=== PATIENT | female | born 1970 | race Asian ===

== ENCOUNTER 2024-06-07 11:56 | Outpatient (CLI) | payer OTHER, SELFPAY ==
--- NOTE | ~2024-06-07 | XR_ITS ---
AP and lateral views of the left hip Clinical history: Pain Findings: No acute fracture or dislocation is seen. Osseous alignment is anatomic. Left hip joint is intact. Soft tissues are unremarkable. Impression: No significant abnormality is seen. Reviewed, dictated and finalized at location . Impression: No significant abnormality is seen.
--- NOTE | ~2024-06-07 | XR_ITS ---
Cervical Spine: AP, lateral, open-mouth views Clinical History: Pain Findings: There is straightening of the normal cervical lordosis. There is advanced degenerative disc narrowing at C5-C6. There is mild degenerative change at C3-C4 and C4-C5. There is moderate facet ar thropathy.. Pre-vertebral soft tissues are unremarkable. Impression: Moderate degenerative spondylosis overall, as detailed above. Reviewed, dictated and finalized at location . Impression: Moderate degenerative spondylosis overall, as detailed above.
--- NOTE | ~2024-06-07 | XR_ITS ---
Left Shoulder Technique: AP and scapular Y and axillary views were obtained. Clinical History: Pain Findings: No fracture or dislocation is seen. Osseous alignment is anatomic. The glenohumeral and acr omioclavicular joint spaces are preserved. Soft tissues are unremarkable. Impression: Unremarkable left shoulder radiographs. Reviewed, dictated and finalized at [facility]. Impression: Unremarkable left shoulder radiographs.
--- OUTSIDE RECORDS SUMMARY | 2024-06-07 13:14 | XMS_ITS | Clinical Summary ---
[facility] Organization [facility] Address [address] [place] [phone] Phone Care Team Providers Care Surgeon/President Name Role Phone Unavailable Primary Care Provider Unavailabl e Allergies No known active allergies Medications No known medications Active Problems Problem Noted Date Diagnosed Date Hypercholesterolemia 05/23/2022 Hypertriglyceridemia 05/23/2022 Dizziness 05/22/2022 Chest pain 05/22/2022 Rapid heart rate 05/22/2022 Family History Medical History Relation Name Comments Thyroid Disease Brother Cancer Father throat Other Father hypoglycemia Thyroid Disease Maternal Grandmother Breast Cancer Mother Diabetes Mother Hypertension Mother Thyroid Disease Sister Relation Name Status Comments Brother Father Maternal Grandmother Mother Alive Sister Social History Tobacco Use Types Packs/Day Years Used Date Smoking Tobacco: Former Cigarettes Q uit: 1989 Smokeless Tobacco: Never Tobacco Cessation:Counseling Given: Not Answered Alcohol Use Standard Drinks/Week Comments Yes 0 (1 standard drink = 0.6 oz pur e alcohol) Wine rare Feeling Safe Answer Date Recorded Are you in a relationship wi th someone who hurts you emotionally and/or physically? 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 Gender Identity Not on file Sexual Orientation Not on file Last Filed Vital Signs Vital Sign Reading Time Taken Comments Blood Pressure 145/93 05/23/2022 11:18 AM CDT Pulse 86 05/23/2022 11:18 AM CDT Temperature 36.6 C (97.9 F) 05/23/2022 11:18 AM CDT Respiratory Rate 16 05/23/2022 11:18 AM CDT Oxygen Saturation 95% 05/23/2022 11:18 AM CDT Inhaled Oxygen Concentration - - Weight 102.1 kg (225 lb) 05/22/2022 7:32 PM CDT Height 165.1 cm (5' 5 ) 05/22/2022 7:32 PM CDT Body Mass Index 37.44 05/22/2022 7:32 PM CDT Plan of Treatment Health Maintenance Due Date Last Done Comments DTAP/TDAP/TD VACCINES (1 - Tdap) 1990 HEPATITIS B VACCINES (1 of 3 - 19+ 3-dose series) 1990 HPV/Cotest (21-29) 01/23/1992 PAP SMEAR 01/23/1992 CERVICAL CANCER SCREENING 2001 HPV/Cotest (30-65) 2001 PAP SMEAR 2001 COLORECTAL SCREENING 01/23/2016 Colorectal Cancer Screening 01/23/2016 FIT-DNA Q 3 years 01/23/2016 FIT/FOBT Q 1 year 01/23/2016 Flex Sig/CT Colonography Q 5 years 01/23/2016 ZOSTER VACCINE (1 of 2) 2021 BREAST CANCER SCREENING 11/07/2021 11/08/19 21, 11/07/2020 INFLUENZA VACCINE (#1) 2023 PNEUMOCOCCAL VACCINE 0-49 YEARS Aged Out No longer eligible b ased on patient's age to complete this topic Insurance [facility] [employer] [id number] Advance Directives For more information, please contact: [phone] * Full Code (Latest Code Status on File) Date Activated Date Inactivated Comments 05/22/2022 8:48 PM 05/23/2022 6:38 PM
--- OUTSIDE RECORDS SUMMARY | 2024-06-07 13:14 | XMS_ITS | Encounter Summary ---
Author Organization [facility] Address [address] [place] [address] Care Team Providers Care Social Media Intern Name Role Phone Unavailable Primary Care Provider Unavailabl e Encounter Details Date Type Department Care Team (Late st Contact Info) Description 06/25/2008 Outpatient Historical [facility] Kody Morales MD [address] [place] [address] Normal Delivery Social History Tobacco Use Types Packs/Day Years Used Date Smoking Tobacco: Never Assessed Comments Unknown Sex and Gender Information Value Date Recorded Sex Assigned at Not on file Legal Sex Female 5:44 AM MANAGER QUALITY COMPLIANCE Gender Identity Not on file Sexual Orientation Not on file documented as of this encounter Plan of Treatment Not on file documented as of this encounter Visit Diagnoses Diagnosis Normal delivery documented in this encounter
--- OUTSIDE RECORDS SUMMARY | 2024-06-07 13:14 | XMS_ITS | Clinical Summary ---
Author Organization [facility] Address [address] [place] [address] Care Team Providers Care Interlibrary Loan Specialist Name Role Phone Unavailable Primary Care Provider Unavailabl e Source Comments [facility],non-owned Affiliates and Associated Physician Practices is amultiple site organization consisting of ambulatory clinics and hospital sitesin [place], [place], [place] and [place]. This disclosure is being madepursuant to the Care Everywhere program and may not contain all information available regarding this patient. Last updated 17.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 Gender Identity Not on file Sexual Orientation Not on file Plan of Treatment Health Maintenance Due Date Last Done Comments COLOGUARD (AGES 45-75) - COL ON CA SCREENING 1971 COLON MONITORING 1971 COLONOSCOPY - COLON CA SCREENING 1971 CT COLONOGRAPHY - COLON CA SCREENING 1971 Colorectal Cancer Screening 1971 FIT - COLON CA SCREENING 1971 FLEX SIG - COLON CA SCREENING 1971 LIPID TESTING 1971 MAMMOGRAM 1971 HIV SCREENING 1986 HEPATITIS C SCREENING 01/17/1989 DTAP/TDAP/TD VACCINES (1 - Tdap) 1990 HEPATITIS B VACCINE (1 of 3 - 19+ 3-dose series) 1990 PNEUMOCOCCAL VACCINE 50+ (1 of 1 - PCV) 2021 ZOSTER VACCINE (1 of 2) 2021 COVID-19 VACCINE (1 - 2023-2 5 season) 2023 DEPRESSION SCREENING 02/23/2024 INFLUENZA VACCINE (Season Ended) 2024 HIB VACCINE Aged Out No longer eligi ble based on patient's age to complete this topic HPV VACCINE Aged Out No longer eligi ble based on patient's age to complete this topic MENINGOCOCCAL (Group B) VACC INE SHARED DECISION-MAKING Aged Out No longer eligibl e based on patient's age to complete this topic MENINGOCOCCAL GROUPS A/C/Y/W VACCINE Aged Out No longer eligible b ased on patient's age to complete this topic
--- OUTSIDE RECORDS SUMMARY | 2024-06-07 13:15 | XMS_ITS | Clinical Summary ---
Author Organization [facility] Address [address] [place] [address] Care Team Providers Care Rn Diabetes Name Role Phone Berny Brown MD Primary Care Provider +1- [phone] Allergies Active Allergy Reactions Criticality Noted Date Comments Adhesive Rash Medium 10/24/2020 Medications No known medications Active Problems No known active problems Surgical History Surgery Date Site/Laterality Comments DILATION AND CURETTAGE, DIAGNOSTIC / THERAPEUTIC Family History Medical History Relation Name Comments Throat cancer Father Breast cancer Mother >50 Colon cancer Neg Hx Endometrial cancer Neg Hx Ovarian cancer Neg Hx Pancreatic cancer Neg Hx Relation Name Status Comments Father Mother Social History Tobacco Use Types Packs/Day Years Used Date Smoking Tobacco: Never Personal Safety Answer Date Recorded Getting School Help Needed Not on file 02/22 Comments No Sex and Gender Information Value Date Recorded Sex Assigned at Not on file Legal Sex Female 4:08 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 Currently sexually active No history of STIs Last Filed Vital Signs Vital Sign Reading Time Taken Comments Blood Pressure 128/78 11/25/2022 9:57 AM CDT Pulse 70 11/25/2022 9:57 AM CDT Temperature - - Respiratory Rate - - Oxygen Saturation 99% 11/25/2022 9:57 AM CDT Inhaled Oxygen Concentration - - Weight 101.6 kg (224 lb) 11/25/2022 9:57 AM CDT Height 165.1 cm (5' 5 ) 11/25/2022 9:57 AM CDT Body Mass Index 37.28 11/25/2022 9:57 AM CDT Plan of Treatment Health Maintenance Due Date Last Done Comments Colon Cancer Screening-Colonoscopy 1971 Depression Screening 1971 Hepatitis C Screening 1971 DTaP/Tdap/Td Vaccine (1 - Tdap) 1982 Hepatitis B Screening 1989 Zoster Vaccine (1 of 2) 2021 Cervical Cancer Screening 10/24/2021 10/24/2020 Regular Well Visit/Exam 18-64 10/24/2021 10/24/2020 Breast Cancer Screening-Mammogram 11/07/2021 021 Influenza Vaccine (#1) 2023 Pneumococcal vaccine <65 Aged Out No longer eligible based on patient's age to complete this topic Procedures Procedure Name Priority Date/Time Associated Diagnosis Comments SCREENING MAMMOGRAM BILATERAL W LELE Schedule Routine, Read Routine (OP Routine) 11/07/2020 9:12 AM CDT Encounter for screening mammogram for malignant neoplasm of breast PAP AND HIGH RISK HPV, REFLEX TO GENOTYPING Routine 10/24/2020 2:14 PM CDT Cervical cancer screening from Last 3 Months or Most Recently Relevant to Health Maintenance Results * Screening Mammogram Bilateral W Lele (11/07/2020 9:12 AM CDT) Anatomical Region Laterality Modality Breast Bilateral Mammography Narrative 11/07/2020 2:35 PM CDT Screening Mammogram Bilateral W Lele: 11/07/20 Clinical: Encounter for screening mammogram for malignant neoplasm of breast. Prior Study Comparisons: None available at the time of interpretation. Findings: Bilateral No significant masses, malignant type calcifications, skin thickening, nipple retraction, or significant lymphadenopathy is noted in either breast. The CAD review showed no significant findings. The breasts have scattered areas of fibroglandular density. The patient will be notified of results by letter. Impression: BI-RADS ATLAS category (overall): 1 Negative There is no mammographic evidence of malignancy. Routine Screening Mammogram in 1 Yr is recommended for bilateral Overall Assessment: 1 - Negative Shauna Mancia MD IMG MAMMO PROCEDURES F inal Result * Pap and High Risk HPV, reflex to Genotyping (10/24/2020 2:14 PM CDT) Swab (Pap test) 10/24/2020 2 :14 PM CDT 10/28/2020 10:55 AM CDT Narrative PATHOLOGY [facility] - 11/05/2020 7:31 PM CDT EPIC results best viewed via link to PDF [address] [address] Tele: Ewa Addison MD - Body Sander CYTOLOGY REPORT Note to Patients: This report may contain a detailed description of human tissue sent by a health care provider to the laboratory for pathologic evaluation. The content of this report is essential for diagnosis and may provide important critical findings. This information may be unfamiliar to patients to review without a medical professional present. It is advised that the patient review this report in the presence of a health care provider who can answer questions and explain the details. Patient Name: GASTON SELBY Address: [address] [place] [address] Gender: F : 1970 (Age: 50) Service: Location: N : [id number] [facility] #: [id number] Patient Type: [facility] SPECIMEN Taken: 10/24/2020 Reported: 11/05/2020 Physician(s): Shauna Mancia MD FINAL DIAGNOSIS: Specimen Type: - ThinPrep Pap and HPV w/ reflex Genotyping Statement of Specimen Adequacy: Source: Cervical/Endocervical - Satisfactory for interpretation - Endocervical /Transformation Zone component present - Case screened using computer assisted imaging technology General Categorization: - Negative for intraepithelial lesion or malignancy Interpretation: - Shift in hema suggestive of Bacterial Vaginosis - Acute Inflammation jx/11/05/2020 19:31 KENNETH Benitez(ASCP), [facility] Report Reviewed and Electronically Signed By KENNETH Benitez(ASCP), [facility] Clerical Data Follow A; G0145 DIAGNOSIS COMMENT: Ancillary Testing: HPV High Risk Group (16, 18, 31, 33, 35, 39, 45, 51, 52, 56, 58, 59, 66 and 68) - Not Detected Reference Range: Not Detected This test was performed using the ENOC 4800 REPORT IMAGES AND/OR SCANNED DOCUMENTS ONLY VIEWABLE IN PDF FORMAT The Pap test is a screening test used to aid in the detection of cervical cancer and its precursors. It should not be the sole means by which malignant and premalignant lesions are diagnosed. Both false negative and false positive results may occur. It also has poor sensitivity for the detection of endometrial lesions and should not be used to evaluate suspected endometrial abnormalities. For these reasons it is most important to obtain Pap tests at regular intervals, as recommended by your physician or nurse practitioner. Shauna Mancia MD LAB CYTOLOGY ORDERABLE S Final Result PATHOLOGY [facility] Laboratory Receiving [address] [place], [place] [id number] from Last 3 Months or Most Recently Relevant to Health Maintenance Insurance [facility] CHOICE PLUS [facility] Care Teams Rn Diabetes Relationship Specialty Start Date End Date Berny Brown MD [facility] [place], [place] [id number] PCP - General Family Medicine 10/22/20
--- OUTSIDE RECORDS SUMMARY | 2024-06-07 13:15 | XMS_ITS | Referral Summary ---
Author Organization [facility] Address [address] [place] [address] Care Team Providers Care Java Technical Architect Name Role Phone Berny Brown MD Primary Care Provider +1- [phone] Allergies Active Allergy Reactions Criticality Noted Date Comments Adhesive Rash Medium 10/24/2020 Medications No known medications Active Problems No known active problems Social History Tobacco Use Types Packs/Day Years Used Date Smoking Tobacco: Never Personal Safety Answer Date Recorded Getting School Help Needed Not on file 02/22 Comments No Sex and Gender Information Value Date Recorded Sex Assigned at Not on file Legal 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 Patient Name: GASTON SELBY. Address: [address] [place] [address] Gender: F : 1970 (Age: 50) Service: Location: Hospital #: [id number] [place] [facility] [place] Taken: 10/24/2020 Reported: 11/05/2020 Physician(s): Shauna [...] suggestive of Bacterial Vaginosis - Acute Inflammation j/11/05/2020 19:31 KENNETH Benitez(ASCP), [facility] Report Reviewed and Electronically Signed By KENNETH Benitez(ASCP), [facility] Clerical Data Follow A; G0145 DIAGNOSIS COMMENT: [...] recommended by your physician or nurse practitioner. us Shauna Mancia MD LAB CYTOLOGY ORDERABLE S Final Result PATHOLOGY [facility] Laboratory Receiving [address] [place] [address] from Last 3 Months or Most Recently Relevant to Health Maintenance Insurance [facility] CHOICE PLUS [facility] Care Teams Java Technical Architect Relationship Specialty Start Date End Date Berny Brown MD [address] [place] [address] [place] [address] PCP - General Family Medicine 10/22/20
--- OUTSIDE RECORDS SUMMARY | 2024-06-07 13:15 | XMS_ITS ---
ent on a case by case basis . Clini aidee inter preta tion for other races and ages must be made by the clini abrahan . Futhe rmore , any of th e limit ation s with the use of serum creat inine relat ed to nutri alfred l statu s o r medic ation usage hasn' t accou nted for the MDRD Study equat ion. For perso ns < 18 yrs of age, a pedia tric GFR calcu lator can be locat ed on the [facility] websi te: https ://ww w.kid nabil.o rg/pr ofess ional s/kdo qi/gf r_cal culat or Not Available [facility] (Lab) [address] [place], [address], 11/01/2020 14:25:13 11/02/19 21 11/01/2020 COMPR EHENS REED METAB OLIC PANEL alkaline phosphatase 55 U/L 38-126 Not Available [facility] (Lab) [address] [place], [address], 11/01/2020 14:25:13 11/02/19 21 11/01/2020 COMPR EHENS REED METAB OLIC PANEL alanine aminotransfe rase 13 U/L 0-35 Not Available [facility] (Lab) [address] [place], [address], 11/01/2020 14:25:13 11/02/19 21 11/01/2020 COMPR EHENS REED METAB OLIC PANEL aspartate aminotransfe rase 28 U/L 15-37 Not Available [facility] (Lab) [address] [place], [address], 11/01/2020 14:25:13 11/02/19 21 11/01/2020 COMPR EHENS REED METAB OLIC PANEL bilirubin, total 0.50 mg/dL 0.20-1 .30 Not Available [facility] (Lab) [address] [place], [address], 11/01/2020 14:25:13 11/02/19 21 11/01/2020 COMPR EHENS REED METAB OLIC PANEL calcium 9.5 mg/dL 8.4-10 .2 Not Available [facility] (Lab) [address] [place], [address], 11/01/2020 14:25:13 11/02/19 21 11/01/2020 COMPR EHENS REED METAB OLIC PANEL total protein 7.5 g/dL 6.3-8. 2 Not Available [facility] (Lab) [address] [place], [address], 11/01/2020 14:25:13 11/02/19 21 11/01/2020 COMPR EHENS REED METAB OLIC PANEL albumin 4.3 g/dL 3.4-5. 0 Not Available [facility] (Lab) [address] [place], [address], 11/01/2020 14:25:13 11/02/19 21 11/01/2020 COMPR EHENS REED METAB OLIC PANEL globulin 3.2 g/dL 2.6-4. 2 Not Available [facility] (Lab) [address] [place], [address], 11/01/2020 14:25:13 11/02/19 21 11/01/2020 COMPR EHENS REED METAB OLIC PANEL A/G ratio 1.3 ratio 1.0-2. 0 Not Available [facility] (Lab) [address] [place], [address], 11/01/2020 14:25:13 11/02/19 21 11/01/2020 LIPID PANEL cholesterol 210 mg/dL 140-19 9 high NIH PEGGY NSUS RECOM MENDA TION FOR MONIKA STERO L: ADULT CHILD LOW RISK: <200 <170 BORDE RLINE : <200- 239 ----- HIGH RISK: >240 >200 Not Available [facility] (Lab) [address] [place], [address], 11/01/2020 14:25:06 11/02/19 21 11/01/2020 LIPID PANEL triglyceride s 123 mg/dL 0-150 NIH PEGGY NSUS REPOR T RECOM MENDA TION FOR TRIGL YCERI FERNANDA: ADULT CHILD LOW RISK: <150 ----- BODER LINE: 150-1 99 ----- HIGH RISK: >200 ----- Not Available [facility] (Lab) [address] [place], [address], 11/01/2020 14:25:06 11/02/19 21 11/01/2020 LIPID PANEL HDL cholesterol 49 mg/dL 40- Not Available [facility] (Lab) [address] [place], [address], 11/01/2020 14:25:06 11/02/19 21 11/01/2020 LIPID PANEL LDL cholesterol, calculated 136 mg/dL 0-130 high NIH PEGGY NSUS REPOR T RECOM MENDA TIONS FOR LDL: ADULT CHILD LOW RISK <130 <110 (OPTI MAL LDL) <100 ----- BORDE RLINE : 130-1 59 ----- HIGH RISK: >160 >130 A TRIGL YCERI DE RESUL T >400 INVAL IDATE S THE CALCU LATIO N FOR LDL FRACT IONAT ION - THE LDL RESUL T WILL NOT BE REPOR ANTONIO. Not Available [facility] (Lab) [address] [place], [address], 11/01/2020 14:25:06 11/08/19 21 11/07/2020 imagi ng/di agnos tic resul t No observ ation record ed. [id number] [facility] Orders Processing [address], [place], [address], 04/22/2022 22:07:39 Result Notes None recorded. Problems Name Problem SNOMED Code Status Onset Date Resolution Date Notes Provider Name and Address Organization Details Recorded Time Irregular heart beat 438567432 Active 2022 Berny Brown MD [address], [place], [address], [facility] [employer] [facility] [employer] [facility] 3 11:39:41 Menopause Active 2022 Berny Brown MD [address], [place], [address], [facility] [employer] [facility] [employer] [facility] 3 11:41:53 Hyperlipidemia 88370575 Active 2022 Berny Brown MD [address], [place], [address], [facility] [employer] [facility] [employer] [facility] 3 11:42:42 Notes:enlarged thyroid Problem Notes None recorded. Procedures Surgical History None recorded. Imaging Results Imaging Date Name Status LastModified by Organiz ation Details LastModified Time 11/07/2020 imaging/wilber gnostic result completed [id number] [facility] Orders [facility] [address], [place], [address], 04/22/2022 22:07:39 Procedure Notes None recorded. Medical Equipment None Reported. Medications Name Sig Start Date Stop Date Status Note LastModified by Organization Details LastModified Time amoxicillin 500 mg capsule TK1 CAPSULE BY MOUTH THREE TIMES DAILY UNTIL ALL TAKEN active Not Available Not Available No t Available atorvastatin 10 mg tablet Take 1 tablet every day by oral route. 2022 active Not Available Not Available Not Avai lable hydrocodone 5 mg-acetaminoph en 325 mg tablet TAKE 1 TO 2 TABLETS BY MOUTH EVERY 6 HOURS active Not Available Not Available No t Available Vitals Date Recorded Body mass index (BMI) Body height Oxygen saturation Oxygen saturation in Arterial blood by Pulse oximetry Heart rate Body temperature Body weight Systolic blood pressure Diastolic blood pressure Provider Name and Address Organization Details Last Updated DateTime 1 34.7 kg/m2 166.37 cm 98 % 98 % 62 /min 96.7 [degF] 81918.5 8 g 124 mm[Hg] 76 mm[Hg] Not Available [employer] 3 22:06:22 Date Recorded Body weight Body mass index (BMI) Body height Body temperature Heart rate Oxygen saturation Oxygen saturation in Arterial blood by Pulse oximetry Systolic blood pressure Diastolic blood pressure Provider Name and Address Organization Details Last Updated DateTime 3 813484. 1 g 36.5 kg/m2 166.37 cm 97.9 [degF] 85 /min 96 % 96 % 120 mm[Hg] 82 mm[Hg] TRES [place] [facility] [place] [employer] [facility] 3 11:30:15 Social History None recorded. Functional Status None recorded. Mental Status None recorded. Family History Nothing Reported. Medical History No medical history recorded. Gynecological HistoryNo gynecological history recorded. Obstetrics History GPAL:G 0 P 0 0 0 0 Past Encounters Encounter ID Performer Location Encounter Start Date Encounter Closed Date Diagnosis/Indication Diagnosis SNOMED-CT Code Diagnosis ICD10 Code Diagnosis Note [id number] [address] [place] [address] 11/01/2020 00:00:00 11/01/2020 10:50:44 [id number] Berny Brown MD [address] [place] [address] 09/09/2022 11:17:10 09/09/2022 11:49:23 Irregular heart beat 668595878 R00.8 Watch caffeine Menopause 079801944 N95. 1 SxRx May need meds for this. Hyperlipidemia 15528611 E78.5 Health Concerns Section Related Observation LastModified by Organization Detai ls LastModified Time None Recorded Concern Status LastModified by Organization Details LastModified Time None Recorded Advance Directives Directive None Recorded Payers Encounter Date Sequence Insurance Name Policy Number Policy Walker Covered Member ID Walker Member ID Guarantor Name 09/09/2022 1 [facility] Gaston Hayden [id number] Gaston Hayden Notes Date Note Type Note Provider Name and Address Organization Details Recorded Time 09/09/2022 text/html Here today for a follow up. Has had fluctuating HR. Went to ER and stayed over night. Was told has an arrythmia. Nothing to be concerned with. This was 3 months ago. [place] light headed and no sob or cp. Has heartburn. Has HR ranging between 44-184. Sometime will be 132. There is Fmhx of heart disease. Has not seen a crdiologist. Pt is going through menopause no menses x 1 year. Berny Brown MD [address] [address], [place], [address], [place] [employer] 09/10/2022 06:23:17 OBGyn Episode No OBEpisode recorded.
== END 2024-06-07 11:57 | disposition home or self-care (01) ==
PROVIDERS: PCP Nurse Practitioner Family; Visit Provider Nurse Practitioner Family
DX: M47.812 Spondylosis without myelopathy or radiculopathy, cervical region (principal); R20.2 Paresthesia of skin; R20.0 Anesthesia of skin; M25.512 Pain in left shoulder; M25.552 Pain in left hip
CPT/HCPCS: 72040; 73030; 73502

== ENCOUNTER 2024-11-06 15:20 | Outpatient (CLI) | payer OTHER, SELFPAY ==
--- NOTE | ~2024-11-06 | MM_ITS ---
EXAMINATION: MM screening izaiah BI w bri HISTORY: Screening TECHNIQUE: Craniocaudal and mediolateral oblique 3-D tomosynthesis images were obtained and synthetic 2-D images were generated. CAD analysis was submitted and interpreted. COMPARISON: No prior mammogram is available for comparison at this institution. BREAST PARENCHYMAL COMPOSITION: Not Dense: The breasts are almost entirely fatty. FINDINGS: There is no evidence of suspicious mass, calcification, or architectural distortion to suggest malignancy in either breast. [There has been no significant interval change. IMPRESSION: 1. No mammographic evidence of malignancy. Recommend routine screening mammography in one year. BI-RADS Category 1: Negative Reviewed, dictated, and finalized at Location A. Reviewed, dictated and finalized at location Q. IMPRESSION: 1. No mammographic evidence of malignancy. Recommend routine screening mammogra phy in one year. BI-RADS Category 1: Negative
--- OUTSIDE RECORDS SUMMARY | 2024-11-06 18:11 | XMS_ITS | Clinical Summary ---
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 Gender Identity Not on file Sexual Orientation [...] 7:32 PM CDT Height 165.1 cm (5' 5) 05/22/2022 7:32 PM CDT Body Mass Index 37.44 05/22/2022 7:32 PM CDT Plan of Treatment Health Maintenance Due Date Last Done Comments DTAP/TDAP/TD VACCINES (1 - Tdap) 1990 HEPATITIS B VACCINES (1 of 3 - 19+ 3-dose series) 1990 HPV/Cotest (21-29) 01/23/1992 CERVICAL CANCER SCREENING 2001 HPV/Cotest (30-65) 2001 PAP SMEAR 2001 COLORECTAL SCREENING 01/23/2016 Colorectal Cancer Screening 01/23/2016 FIT-DNA Q 3 years 01/23/2016 FIT/FOBT Q 1 year 01/23/2016 Flex Sig/CT Colonography Q 5 years 01/23/2016 ZOSTER VACCINE (1 of 2) 2021 BREAST CANCER SCREENING 11/07/2021 11/07/2020, 11/07 INFLUENZA VACCINE (#1) 2024 Insurance [employer] [id number] Advance Directives For more information, please contact: [phone] * Full Code (Latest Code Status on File) Date Activated Date Inactivated Comments 05/22/2022 8:48 PM 05/23/2022 6:38 PM
--- OUTSIDE RECORDS SUMMARY | 2024-11-06 18:11 | XMS_ITS | Clinical Summary ---
Author Organization [facility] Address [address] [place] [address] Care Team Providers Care Ranch Supervisor Name Role Phone Unavailable Primary Care Provider Unavailabl e Source Comments [facility],non-owned Affiliates and Associated Physician Practices is amultiple site organization consisting of ambulatory clinics and hospital sitesin [place], [place], [place] and [place]. This disclosure is being madepursuant to the Care Everywhere program and may not contain all information available regarding this patient. 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
--- OUTSIDE RECORDS SUMMARY | 2024-11-06 18:11 | XMS_ITS | Clinical Summary ---
Author Organization 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 Patient Name: GASTON SELBY Address: [address] [place] [address] Gender: F : 1970 (Age: 50) Service: Location: N : [id number] [facility] #: [id number] Patient Type: [facility] SPECIMEN Taken: 10/24/2020 Reported: 11/05/2020 Physician(s): Shauna [...] Reviewed and Electronically Signed By KENNETH Benitez(ASCP), [facility] Clerical Data Follow A; [id number] DIAGNOSIS COMMENT: [...] LAB CYTOLOGY ORDERABLE S Final Result PATHOLOGY [facility] Laboratory Receiving [address] [place], [place] [id number] from Last 3 Months or Most Recently Relevant to Health Maintenance Insurance [facility] CHOICE [facility] HMO/PPO Address: [facility] [address] [place] [address] [facility] Care Teams Forepart Rasper Relationship Specialty Start Date End Date Berny Brown MD [facility] [place], [place] [id number] PCP - General Family Medicine 10/22/20
--- OUTSIDE RECORDS SUMMARY | 2024-11-06 18:11 | XMS_ITS | Encounter Summary ---
Author Organization [facility] Address 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
== END 2024-11-06 15:21 | disposition home or self-care (01) ==
LOC: ANHFOHIMG 15:21
PROVIDERS: PCP Nurse Practitioner Family; Visit Provider Nurse Practitioner Family
DX: Z12.31 Encounter for screening mammogram for malignant neoplasm of breast (principal)
CPT/HCPCS: 77063; 77067

== ENCOUNTER 2024-11-29 12:49 | Outpatient (CLI) | payer OTHER, SELFPAY ==
--- NOTE | ~2024-11-29 | US_ITS ---
EXAMINATION: US thyroid DATE: 11/29/2024 13:00 INDICATION: Nontoxic goiter, unspecified. TECHNIQUE: Multiple ultrasound images of the thyroid were obtained. COMPARISON: None. FINDINGS: The right thyroid lobe measures 5.4 x 2.1 x 2.1 cm. The left thyroid lobe measures 4.7 x 2.1 x 1.4 cm. In the right thyroid lobe, there is a 10 mm solid, hypoechoic, wider than tall nodule with smooth margin without echogenic foci (TI-RADS TR4). In the left thyroid lobe, there is an 11 mm mixed cystic and solid, hypoechoic, wider than tall nodule with smooth margin without echogenic foci (TR3). IMPRESSION: 1. Thyroid nodules. Thyroid ultrasound is recommended in one year. Reviewed, dictated and finalized at location E.
== END 2024-11-29 12:50 | disposition home or self-care (01) ==
LOC: GOSHIMG 12:49
PROVIDERS: PCP Nurse Practitioner Family; Visit Provider Nurse Practitioner Family
DX: E04.2 Nontoxic multinodular goiter (principal)
CPT/HCPCS: 76536